=== PATIENT | female | born 1965 | race Caucasian/White ===

== ENCOUNTER 2017-12-24 12:00 | Inpatient (IN) | payer OTHER ==
[~2017-12-24] VITALS: Ht 154.9 cm; Wt 52.2 kg
[~2017-12-24 12:00] MED LIST: CIPRO500 MG PO; DELZICOL400 M1 PO; DOLOGESIC 500-1 EACH PO; FLAGYL500MG PO; HUMIRA40 MG/0.1 SQ; INTESTINEX680 MG PO; LEVAQUIN500 MG PO; Neurin-Sl Tablet Sl SL; PREDNISONE20 MG PO; PYRIDOXINE HCL100 M1 PO
[2017-12-24] MEDS ORDERED: IMURAN50 MG PO (13:22)
== END 2018-01-02 20:38 | disposition home or self-care (01) | DRG 330 ==
LOC: O/R 12-31 06:28 → SURG 12-31 10:15 → SURH 12-31 17:30
PROVIDERS: Colon & Rectal Surgery
PROC: 0DSM0ZZ Reposition Descending Colon, Open Approach (ICD-10-PCS; 2017-12-31)
PROC: 0D1M0Z4 Bypass Descending Colon to Cutaneous, Open Approach (ICD-10-PCS; principal; 2017-12-31 10:15)
DX: K50.113 Crohn's disease of large intestine with fistula (principal); E70.331 Hermansky-Pudlak syndrome; D62 Acute posthemorrhagic anemia

== ENCOUNTER 2021-05-25 11:00 | Inpatient (IN) | payer OTHER ==
[~2021-05-25] VITALS: Ht 160 cm; Wt 74.8 kg
[~2021-05-25 11:00] MED LIST changes: +IMURAN50 MG PO
== END 2021-05-31 13:55 | disposition home or self-care (01) | DRG 330 ==
LOC: O/R 05-30 06:53 → SURH 05-30 07:00 → O/R 05-31 13:55
PROVIDERS: ADMIT Colon & Rectal Surgery; ATTEND Colon & Rectal Surgery
PROC: 0DTN4ZZ Resection of Sigmoid Colon, Percutaneous Endoscopic Approach (ICD-10-PCS; principal; 2021-05-30 07:00)
DX: K50.113 Crohn's disease of large intestine with fistula (principal); K94.09 Other complications of colostomy; Z20.822 Contact with and (suspected) exposure to COVID-19

== ENCOUNTER 2021-09-09 16:57 | Emergency (ER) | payer OTHER ==
[~2021-09-09] VITALS: Ht 157.5 cm; Wt 70.3 kg
== END 2021-09-09 21:10 | disposition home or self-care (01) ==
LOC: ER 16:57
DX: K80.01 Calculus of gallbladder with acute cholecystitis with obstruction (principal)

== ENCOUNTER 2024-03-11 12:00 | Inpatient (IN) | payer OTHER ==
[~2024-03-11] VITALS: Ht 160 cm; Wt 74.4 kg
[~2024-03-11 12:00] MED LIST changes: +ACETAMINOPHEN500 M2 PO
[2024-03-12] MEDS ORDERED: INFLIXIMAB100 MG IV (09:43)
[2024-03-12] MEDS ORDERED: ALBUTEROL1.25 MG/3 IH (10:15)
[2024-03-17] MEDS ORDERED: DESMOPRESSIN ACETATE 40 MCG/10 ML ML IV SCH ×2 (07:30→20:00)
[2024-03-17] MEDS ORDERED: RINGERS SOLUTION,LACTATED 1,000 ML IV SCH (16:45)
[2024-03-18] MEDS ORDERED: CHLORHEXIDINE GLUCONATE 120 ML BOTTLE TOP ONE (13:14)
[2024-03-18] MEDS ORDERED: METRONIDAZOLE/SODIUM CHLORIDE 500 MG/100 ML PIGGYBACK IV ONE (14:03)
[2024-03-18] MEDS ORDERED: CEFTRIAXONE SODIUM 2,000 MG VIAL ONE (14:03)
[2024-03-18] MEDS ORDERED: SUGAMMADEX SODIUM 200 MG/2 ML VIAL IV ONE ×2 (15:15→15:30)
[2024-03-18] MEDS ORDERED: OxyCODONE HCL 5 MG TABLET (ROXICODONE) PO PRN (15:45)
[2024-03-18] MEDS ORDERED: MORPHINE SULFATE 4 MG/ML CARTRIDGE IV PRN (15:45)
[2024-03-18] MEDS ORDERED: ONDANSETRON HCL 2 MG/ML VIAL IV PRN (15:45)
[2024-03-18] MEDS ORDERED: METOCLOPRAMIDE HCL 5 MG/ML VIAL IV SCH (17:00)
[2024-03-18] MEDS ORDERED: HYOSCYAMINE SULFATE 0.125 MG TAB.SUBL SL SCH (17:00)
[2024-03-18] MEDS ORDERED: GABAPENTIN 300 MG CAPSULE PO SCH (17:00)
[2024-03-18] MEDS ORDERED: POLYETHYLENE GLYCOL 3350 17 GM BLIST.PACK PO SCH (17:00)
[2024-03-18] MEDS ORDERED: CELECOXIB 200 MG CAPSULE PO SCH (17:00)
[2024-03-18] MEDS ORDERED: SIMETHICONE 125 MG CAPSULE PO SCH (17:00)
[2024-03-18 17:45] LABS: HEMATOCRIT 35.5 % (36.0-45.00); MEAN CELL VOLUME 89.7 fL (80.00-100.00); MEAN CORPUSCULAR HEMOGLOBIN 30.3 pg (27.00-32.0); MEAN CORPUSCULAR HGB CONC 33.7 g/dl (32.0-36.0); PLATELET COUNT 241 K/uL (150-450); RED BLOOD COUNT 3.95 M/uL (4.00-6.00); RED CELL DISTRIBUTION WIDTH 14.3 % (11.5-14.5)
[2024-03-18] MEDS ORDERED: ACETAMINOPHEN 500 MG GEL..CAP PO ONE (19:29)
[2024-03-18] MEDS ORDERED: ACETAMINOPHEN 500 MG GEL..CAP PO SCH (20:00)
[2024-03-18] MEDS ORDERED: FAMOTIDINE/PF 20 MG/2 ML VIAL IV PUSH SCH (21:00)
[2024-03-19 07:01] LABS: HEMATOCRIT 31.5 % (36.0-45.00); HEMOGLOBIN 10.7 g/dL (12.0-15.00); MEAN CELL VOLUME 88.4 fL (80.00-100.00); MEAN CORPUSCULAR HEMOGLOBIN 30.1 pg (27.00-32.0); PLATELET COUNT 203 K/uL (150-450); RED BLOOD COUNT 3.57 M/uL (4.00-6.00)
[2024-03-19 07:06] LABS: CREATININE SERUM 0.57 mg/dL (0.55-1.02); GFR 109.32; MAGNESIUM 1.9 mg/dL (1.8-2.4); PHOSPHOROUS 3.4 mg/dL (2.5-4.9); POTASSIUM 4.11 mEq/L (3.5-5.1)
[2024-03-19] MEDS ORDERED: LACTOBACILLUS ACIDOPHILUS 1 CAP CAP PO SCH (09:00)
[2024-03-19] MEDS ORDERED: LACTULOSE 20 G/30 ML BLIST.PACK PO SCH (09:00)
[2024-03-19] MEDS ORDERED: ENOXAPARIN SODIUM 40 MG/0.4 ML SYRINGE SUBCUTANEO SCH (17:00)
[2024-03-20 07:05] LABS: MEAN CELL VOLUME 88.7 fL (80.00-100.00); MEAN CORPUSCULAR HEMOGLOBIN 30.3 pg (27.00-32.0); MEAN CORPUSCULAR HGB CONC 34.2 g/dl (32.0-36.0); PLATELET COUNT 216 K/uL (150-450); RED BLOOD COUNT 3.94 M/uL (4.00-6.00)
[2024-03-20 07:29] LABS: CALCIUM 8.2 mg/dL (8.5-10.1); CREATININE SERUM 0.69 mg/dL (0.55-1.02); GFR 87.69; PHOSPHOROUS 2.3 mg/dL (2.5-4.9); POTASSIUM 3.68 mEq/L (3.5-5.1)
[2024-03-20] MEDS ORDERED: TRAMADOL HCL E100 M1 PO (08:47)
[2024-03-20] MEDS ORDERED: IMODIUM A-D2 MG PO (08:47)
[2024-03-20] MEDS ORDERED: ENOXAPARIN SODIUM 40 MG/0.4 ML SYRINGE SUBCUTANEO SCH (09:00)
[2024-03-20] MEDS ORDERED: TRAMADOL HCL50 MG PO (10:05)
[2024-03-20] MEDS ORDERED: POTASSIUM PHOS,M-BASIC-D-BASIC 3 MM/ML VIAL IV NR (11:00)
== END 2024-03-20 19:22 | disposition home or self-care (01) | DRG 330 ==
LOC: SURH 03-17 12:00 → O/R 03-17 14:28 → SURG 03-17 14:28 → SURH 03-17 18:15 → SURG 03-20 19:22
PROVIDERS: Internal Medicine Geriatric Medicine; ADMIT Colon & Rectal Surgery; ATTEND Colon & Rectal Surgery
PROC: 0DBM4ZZ Excision of Descending Colon, Percutaneous Endoscopic Approach (ICD-10-PCS; 2024-03-18)
PROC: 0DBB4ZZ Excision of Ileum, Percutaneous Endoscopic Approach (ICD-10-PCS; 2024-03-18)
PROC: 0DBP4ZZ Excision of Rectum, Percutaneous Endoscopic Approach (ICD-10-PCS; 2024-03-18)
PROC: 0DTF4ZZ Resection of Right Large Intestine, Percutaneous Endoscopic Approach (ICD-10-PCS; principal; 2024-03-18 13:00)
DX: K50.113 Crohn's disease of large intestine with fistula (principal); K92.1 Melena